=== PATIENT | male | born 1990 | race African-American/Black ===

== ENCOUNTER 2017-07-02 07:30 | Emergency (ER) | payer OTHER, SELFPAY ==
[~2017-07-02] VITALS: Ht 185.4 cm; Wt 98.0 kg
[2017-07-02] MEDS ORDERED: HYDROmorphone 1 MG/ML, 1ML IVPush PRN (08:00)
[2017-07-02] MEDS ORDERED: SODIUM CHLORIDE 0.9% 1,000ML IVBOLUS ONE (08:00)
[2017-07-02] MEDS ORDERED: ONDANSETRON 2MG/ML, 2ML IVPush ONE (08:00)
[2017-07-02] MEDS ORDERED: SODIUM CHLORIDE FLUSH 10ML SYR IVF ONE (08:00)
[2017-07-02] MEDS ORDERED: ONDANSETRON 2MG/ML, 2ML ONE (08:09)
[2017-07-02] MEDS ORDERED: HYDROmorphone 1 MG/ML, 1ML ONE (08:09)
[2017-07-02 08:19] LABS: HEMATOCRIT 48.1 % (39.2-51.8); HEMOGLOBIN 16.2 g/dL (13.7-18.0); WHITE BLOOD COUNT 15.9 x10^3/uL (3.4-10)
[2017-07-02 08:31] LABS: ASPARTATE AMINO TRANSFERASE 23 U/L (15-37); BLOOD UREA NITROGEN 13 mg/dL (7-18)
[2017-07-02] MEDS ORDERED: OMNIPAQUE 350 MG/ML, 100ML BOTTLE ONE (09:50)
[2017-07-02 11:12] VITALS: BP 128/59
== END 2017-07-02 11:55 | disposition home or self-care (01) ==
LOC: ED 08:26
DX: R10.12 Left upper quadrant pain (principal); R10.32 Left lower quadrant pain
CPT/HCPCS: 36415; 74177; 80053; 81001; 83690; 85025; 96361; 96374; 96375; 99285; J1170; J2405; J7030; Q9967

== ENCOUNTER 2017-11-22 14:28 | Emergency (ER) | payer SELFPAY ==
[~2017-11-22] VITALS: Ht 185.4 cm; Wt 92.0 kg
[2017-11-22] MEDS ORDERED: MORPHINE SULFATE 4 MG/ML, 1ML ONE (14:47)
[2017-11-22] MEDS ORDERED: FAMOTIDINE 20 MG/2 ML ONE (14:47)
[2017-11-22] MEDS ORDERED: ONDANSETRON 2MG/ML, 2ML ONE (14:47)
[2017-11-22] MEDS ORDERED: MORPHINE SULFATE 4 MG/ML, 1ML IVPush PRN (15:00)
[2017-11-22] MEDS ORDERED: ONDANSETRON 2MG/ML, 2ML IVPush ONE (15:00)
[2017-11-22] MEDS ORDERED: SODIUM CHLORIDE FLUSH 10ML SYR IVF ONE (15:00)
[2017-11-22] MEDS ORDERED: SODIUM CHLORIDE 0.9% 1,000ML IVBOLUS ONE ×2 (15:00→16:00)
[2017-11-22] MEDS ORDERED: FAMOTIDINE 20 MG/2 ML IVP ONE (15:00)
[2017-11-22] MEDS ORDERED: PLEASE ENTER HEIGHT AND WEIGHT MC SCH (15:00)
[2017-11-22 15:21] LABS: BASOPHILS % (AUTO) 0 % (0-1); EOSINOPHILS % (AUTO) 0 % (1-7); LYMPHOCYTES # (AUTO) 0.35 x10^3/uL (1-3.4); LYMPHOCYTES % (AUTO) 6 % (22-44); MD NO; MEAN CORPUSCULAR HEMOGLOBIN 30.1 pg (27.5-34.5); MEAN CORPUSCULAR VOLUME 88.6 fL (81-97); MEAN PLATELET VOLUME 8.6 fL (7.4-10.4); MONOCYTES # (AUTO) 0.68 x10^3/uL (0.2-0.8); MONOCYTES % (AUTO) 11 % (2-9); NEUTROPHILS # (AUTO) 4.96 x10^3/uL (1.8-6.8); NEUTROPHILS % (AUTO) 83 % (42-75); PLATELET COUNT 143 x10^3/uL (130-400); RED BLOOD COUNT 5.27 x10^6/uL (4.38-5.82); RED CELL DISTRIBUTION WIDTH 13.3 % (9.4-14.8)
[2017-11-22 15:25] LABS: MICROSCOPIC NOT IND
[2017-11-22 15:30] LABS: ALBUMIN 3.6 g/dL (3.4-5.0); ANION GAP 10 mmol/L (5-15); CALCIUM 8.5 mg/dL (8.5-10.1); CHLORIDE 102 mmol/L (98-107)
[2017-11-22 15:34] LABS: ALANINE AMINOTRANSFERASE 55 U/L (12-78); ALKALINE PHOSPHATASE 69 U/L (45-117); BILIRUBIN,TOTAL 0.4 mg/dL (0.2-1.0); CREATININE 1.12 mg/dL (0.7-1.3); CULTURE INDICATED? NO; TOTAL PROTEIN 7.1 g/dL (6.4-8.2)
[2017-11-22 15:38] VITALS: BP 135/66
== END 2017-11-22 16:09 | disposition home or self-care (01) ==
LOC: ED 15:45
DX: K25.3 Acute gastric ulcer without hemorrhage or perforation (principal); B96.81 Helicobacter pylori [H. pylori] as the cause of diseases classified elsewhere; E86.0 Dehydration; K52.9 Noninfective gastroenteritis and colitis, unspecified
CPT/HCPCS: 36415; 80053; 81003; 83690; 85025; 86677; 96361; 96374; 96375; 99284; J2405; J7030; S0028

== ENCOUNTER 2018-08-23 19:46 | Emergency (ER) | payer OTHER ==
[~2018-08-23] VITALS: Ht 188 cm; Wt 89.0 kg
[2018-08-23] MEDS ORDERED: DICYCLOMINE 20 MG TABLET ONE (20:25)
[2018-08-23] MEDS ORDERED: MAALOX/HYOSCYAMINE/LIDOCAINE 45 ML BTL ONE (20:25)
[2018-08-23] MEDS ORDERED: PROMETHAZINE 25 MG/ML, 1ML ONE (20:26)
[2018-08-23] MEDS ORDERED: PROMETHAZINE 25 MG/ML, 1ML IM ONE (20:30)
[2018-08-23] MEDS ORDERED: MAALOX/HYOSCYAMINE/LIDOCAINE 45 ML BTL PO ONE (20:30)
[2018-08-23] MEDS ORDERED: DICYCLOMINE 20 MG TABLET PO ONE (20:30)
[2018-08-23 20:42] LABS: BASOPHILS # (AUTO) 0.01 x10^3/uL (0-0.1); BASOPHILS % (AUTO) 0 % (0-1); EOSINOPHILS # (AUTO) 0.11 x10^3/uL (0-0.4); EOSINOPHILS % (AUTO) 1 % (1-7); LYMPHOCYTES # (AUTO) 1.14 x10^3/uL (1-3.4); LYMPHOCYTES % (AUTO) 7 % (22-44); MD NO; MEAN CORPUSCULAR HEMOGLOBIN 30.4 pg (27.5-34.5); MEAN CORPUSCULAR HGB CONC 33.8 g/dL (33.2-36.2); MEAN CORPUSCULAR VOLUME 90.1 fL (81-97); MEAN PLATELET VOLUME 8.5 fL (7.4-10.4); MONOCYTES # (AUTO) 0.71 x10^3/uL (0.2-0.8); MONOCYTES % (AUTO) 5 % (2-9); NEUTROPHILS # (AUTO) 13.75 x10^3/uL (1.8-6.8); NEUTROPHILS % (AUTO) 87 % (42-75); PLATELET COUNT 194 x10^3/uL (130-400); RED BLOOD COUNT 5.22 x10^6/uL (4.38-5.82); RED CELL DISTRIBUTION WIDTH 13.3 % (9.4-14.8)
[2018-08-23 20:53] LABS: ALANINE AMINOTRANSFERASE 54 U/L (12-78); ALBUMIN 4.2 g/dL (3.4-5.0); ANION GAP 10 mmol/L (5-15); CHLORIDE 110 mmol/L (98-107); CREATININE 1.16 mg/dL (0.7-1.3)
[2018-08-23 20:55] LABS: ALKALINE PHOSPHATASE 63 U/L (45-117); BILIRUBIN,TOTAL 0.5 mg/dL (0.2-1.0); TOTAL PROTEIN 7.5 g/dL (6.4-8.2)
[2018-08-23 21:21] VITALS: BP 123/57
== END 2018-08-23 22:26 | disposition home or self-care (01) ==
LOC: ED 22:25
DX: K92.2 Gastrointestinal hemorrhage, unspecified (principal); K92.0 Hematemesis
CPT/HCPCS: 36415; 80053; 83690; 85025; 96372; 99284; J2550

== ENCOUNTER 2018-08-31 20:32 | Emergency (ER) | payer MEDICAID, OTHER ==
[~2018-08-31] VITALS: Ht 188 cm; Wt 87.2 kg
[2018-08-31 20:33] VITALS: BP 98/62
[2018-08-31] MEDS ORDERED: SODIUM CHLORIDE FLUSH 10ML SYR IVF ONE (21:00)
[2018-08-31] MEDS ORDERED: DIPHENHYDRAMINE 50 MG/ML, 1ML IVPush ONE (21:00)
[2018-08-31] MEDS ORDERED: METOCLOPRAMIDE 5 MG/ML, 2ML IVPush ONE (21:00)
[2018-08-31] MEDS ORDERED: SODIUM CHLORIDE 0.9% 1,000ML IVBOLUS ONE (21:00)
[2018-08-31 21:20] LABS: BASOPHILS # (AUTO) 0.01 x10^3/uL (0-0.1); BASOPHILS % (AUTO) 0 % (0-1); EOSINOPHILS # (AUTO) 0.03 x10^3/uL (0-0.4); EOSINOPHILS % (AUTO) 0 % (1-7); LYMPHOCYTES # (AUTO) 1.02 x10^3/uL (1-3.4); LYMPHOCYTES % (AUTO) 8 % (22-44); MD NO; MEAN CORPUSCULAR HEMOGLOBIN 30.8 pg (27.5-34.5); MEAN CORPUSCULAR HGB CONC 33.8 g/dL (33.2-36.2); MEAN CORPUSCULAR VOLUME 91.1 fL (81-97); MEAN PLATELET VOLUME 8.6 fL (7.4-10.4); MONOCYTES # (AUTO) 0.53 x10^3/uL (0.2-0.8); MONOCYTES % (AUTO) 4 % (2-9); NEUTROPHILS # (AUTO) 11.68 x10^3/uL (1.8-6.8); NEUTROPHILS % (AUTO) 88 % (42-75); PLATELET COUNT 197 x10^3/uL (130-400); RED BLOOD COUNT 5.17 x10^6/uL (4.38-5.82); RED CELL DISTRIBUTION WIDTH 13.5 % (9.4-14.8)
[2018-08-31 21:29] LABS: ALBUMIN 4.3 g/dL (3.4-5.0); ANION GAP 12 mmol/L (5-15); CALCIUM 9.2 mg/dL (8.5-10.1); CHLORIDE 108 mmol/L (98-107)
[2018-08-31 21:33] LABS: ALANINE AMINOTRANSFERASE 46 U/L (12-78); ALKALINE PHOSPHATASE 62 U/L (45-117); BILIRUBIN,TOTAL 0.8 mg/dL (0.2-1.0); CREATININE 0.99 mg/dL (0.7-1.3); TOTAL PROTEIN 7.4 g/dL (6.4-8.2)
[2018-08-31] MEDS ORDERED: METOCLOPRAMIDE 5 MG/ML, 2ML ONE (21:57)
[2018-08-31] MEDS ORDERED: DIPHENHYDRAMINE 50 MG/ML, 1ML ONE (21:57)
== END 2018-08-31 23:03 | disposition home or self-care (01) ==
LOC: ED 21:37
DX: E86.0 Dehydration (principal); R10.13 Epigastric pain; R11.2 Nausea with vomiting, unspecified
CPT/HCPCS: 36415; 71045; 80053; 83690; 85025; 93005; 96361; 96374; 96375; 99285; J1200; J2765; J7030

== ENCOUNTER 2019-06-04 05:56 | Emergency (ER) | payer MEDICAID ==
[~2019-06-04] VITALS: Ht 185.4 cm; Wt 99.4 kg
[2019-06-04] MEDS ORDERED: ONDANSETRON 2MG/ML, 2ML ONE (06:25)
[2019-06-04] MEDS ORDERED: HYDROmorphone 2 MG/ML, 1ML ONE ×2 (06:26→07:45)
[2019-06-04] MEDS ORDERED: SODIUM CHLORIDE FLUSH 10ML SYR IVF ONE (06:30)
[2019-06-04] MEDS ORDERED: ONDANSETRON 2MG/ML, 2ML IVPush ONE (06:30)
[2019-06-04] MEDS: HYDROmorphone 2 MG/ML, 1ML IVPush PRN ×2 (06:33→07:50)
--- NOTE | 2019-06-04 06:40 | NUR ---
Pt presents to ed c/o dull pain R side of abd and R flank/backx3 days. States increasing, sharp, pain starting this am w/ bearing down for bm. Denies further gi/gu s/s. States hx 2 dx of h. pylori, most recent nov. Denies vomiting/blood in emesis. IV initiated and medications admin. Pt to ct at this time.
[2019-06-04 06:46] LABS: BASOPHILS # (AUTO) 0.01 x10^3/uL (0-0.1); BASOPHILS % (AUTO) 0 % (0-1); EOSINOPHILS % (AUTO) 4 % (1-7); LYMPHOCYTES # (AUTO) 1.51 x10^3/uL (1-3.4); LYMPHOCYTES % (AUTO) 32 % (22-44); MD NO; MEAN CORPUSCULAR HEMOGLOBIN 30.6 pg (27.5-34.5); MEAN CORPUSCULAR HGB CONC 33.2 g/dL (33.2-36.2); MEAN CORPUSCULAR VOLUME 92.2 fL (81-97); MEAN PLATELET VOLUME 8.6 fL (7.4-10.4); MONOCYTES # (AUTO) 0.45 x10^3/uL (0.2-0.8); MONOCYTES % (AUTO) 10 % (2-9); NEUTROPHILS # (AUTO) 2.57 x10^3/uL (1.8-6.8); NEUTROPHILS % (AUTO) 54 % (42-75); PLATELET COUNT 181 x10^3/uL (130-400); RED BLOOD COUNT 5.08 x10^6/uL (4.38-5.82); RED CELL DISTRIBUTION WIDTH 13.7 % (9.4-14.8)
[2019-06-04 06:56] LABS: ALBUMIN 3.7 g/dL (3.4-5.0); ANION GAP 3 mmol/L (5-15); CALCIUM 8.5 mg/dL (8.5-10.1); CHLORIDE 111 mmol/L (98-107)
[2019-06-04 06:59] LABS: ALANINE AMINOTRANSFERASE 51 U/L (12-78); ALKALINE PHOSPHATASE 61 U/L (45-117); BILIRUBIN,TOTAL 0.3 mg/dL (0.2-1.0); CREATININE 1.02 mg/dL (0.7-1.3); TOTAL PROTEIN 6.6 g/dL (6.4-8.2)
--- NOTE | 2019-06-04 07:03 | NUR ---
REPORT FROM ANDER NEWBY. PATIENT REPORTS PAIN IMPROVED BUT STILL QUITE UNCOMFORTABLE AT 5/10 VITALS UPDATED-WNL (MILDLY BRADYCARDIC-YOUNG ATHLETIC MALE) UPDATED ON ESTIMATED POC (AWAITING COMPLETE TESTING RESULTS)
[2019-06-04 07:12] LABS: MICROSCOPIC INDICATED
[2019-06-04 07:28] LABS: CULTURE INDICATED? NO
[2019-06-04 08:04] VITALS: BP 111/64
== END 2019-06-04 08:06 | disposition home or self-care (01) ==
LOC: ED 07:17
DX: S39.012A Strain of muscle, fascia and tendon of lower back, initial encounter (principal); F17.210 Nicotine dependence, cigarettes, uncomplicated; X58.XXXA Exposure to other specified factors, initial encounter; Y93.89 Activity, other specified; Y92.89 Other specified places as the place of occurrence of the external cause; Y99.8 Other external cause status
CPT/HCPCS: 36415; 74176; 80053; 81001; 83690; 85025; 96374; 96375; 96376; 99284; J1170; J2405

== ENCOUNTER 2019-09-24 12:14 | Emergency (ER) | payer MEDICAID, OTHER ==
[~2019-09-24] VITALS: Ht 185.4 cm; Wt 100.2 kg
[2019-09-24] MEDS ORDERED: FAMOTIDINE 20 MG TABLET PO ONE (13:00)
[2019-09-24] MEDS ORDERED: ONDANSETRON ODT 4 MG PO ONE (13:00)
--- NOTE | 2019-09-24 14:12 | NUR ---
STAVE HEWER: PT TO ROOM FROM [id number]
[2019-09-24] MEDS ORDERED: ONDANSETRON ODT 4 MG ONE (14:25)
[2019-09-24] MEDS ORDERED: FAMOTIDINE 20 MG TABLET ONE (14:25)
--- NOTE | 2019-09-24 14:31 | NUR ---
PT HAS HAD CO OF N/V SINCE 430 THIS AM. 10X EMESIS. PT UNABLE TO KEEP FLUIDS OR FOODS DOWN SINCE YESTERDAY. NOT IN DISTRESS AT THIS TIME. PA AT BEDSIDE.
[2019-09-24 14:38] LABS: BASOPHILS # (AUTO) 0.01 x10^3/uL (0-0.1); BASOPHILS % (AUTO) 0 % (0-1); EOSINOPHILS # (AUTO) 0.02 x10^3/uL (0-0.4); EOSINOPHILS % (AUTO) 0 % (1-7); LYMPHOCYTES # (AUTO) 0.81 x10^3/uL (1-3.4); LYMPHOCYTES % (AUTO) 5 % (22-44); MD NO; MEAN CORPUSCULAR HEMOGLOBIN 30.2 pg (27.5-34.5); MEAN CORPUSCULAR HGB CONC 33.2 g/dL (33.2-36.2); MEAN PLATELET VOLUME 8.8 fL (7.4-10.4); MONOCYTES # (AUTO) 0.67 x10^3/uL (0.2-0.8); MONOCYTES % (AUTO) 4 % (2-9); NEUTROPHILS # (AUTO) 14.33 x10^3/uL (1.8-6.8); NEUTROPHILS % (AUTO) 91 % (42-75); PLATELET COUNT 193 x10^3/uL (130-400); RED BLOOD COUNT 5.72 x10^6/uL (4.38-5.82); RED CELL DISTRIBUTION WIDTH 13.3 % (9.4-14.8)
--- NOTE | 2019-09-24 14:38 | NUR ---
SULLY RN: JANES DAVIES HAS SEEN PATIENT. CALL LIGHT IN PLACE. WILL MONITOR WHILE PRIMARY RN IS ON BREAK.
[2019-09-24 14:39] LABS: ALANINE AMINOTRANSFERASE 73 U/L (12-78); ANION GAP 6 mmol/L (5-15); CALCIUM 9.7 mg/dL (8.5-10.1); CHLORIDE 107 mmol/L (98-107); CREATININE 1.14 mg/dL (0.7-1.3)
[2019-09-24 14:42] LABS: ALKALINE PHOSPHATASE 72 U/L (45-117); BILIRUBIN,TOTAL 0.8 mg/dL (0.2-1.0); TOTAL PROTEIN 8.3 g/dL (6.4-8.2)
[2019-09-24] MEDS ORDERED: DICYCLOMINE 10 MG CAPSULE PO ONE (15:00)
--- NOTE | 2019-09-24 15:02 | NUR ---
SULLY RN: FLORENCIO FENG AT THIS TIME PER JANES DAVIES.
--- NOTE | 2019-09-24 15:14 | NUR ---
Report given to KEYONNA Swenson
[2019-09-24] MEDS ORDERED: DICYCLOMINE 20 MG TABLET ONE (15:51)
[2019-09-24] MEDS ORDERED: DICYCLOMINE 20 MG TABLET PO ONE (16:00)
--- NOTE | 2019-09-24 16:16 | NUR ---
MEDICATED PER ORDERS. ENCOURAGED PT TO VOID. PT DENYING NEED TO VOID
--- NOTE | 2019-09-24 16:33 | NUR ---
REMINDED PT FOR UA, STILL NOT NEEDING TO VOID. STATES STILL HAS DISCOMFORT IN ABDOMEN
[2019-09-24 17:45] LABS: CULTURE INDICATED? NO; MICROSCOPIC INDICATED
[2019-09-24] MEDS ORDERED: HYDROcodone/APAP 5/325 TABLET ONE (17:56)
[2019-09-24 17:59] VITALS: BP 118/72
[2019-09-24] MEDS ORDERED: HYDROcodone/APAP 5/325 TABLET PO ONE (18:00)
--- NOTE | 2019-09-24 18:09 | NUR ---
PT CO OF ABDOMINAL PAIN. PT MEDICATED W NORCO. WILL REASSES. VS STABLE AT THIS TIME
--- NOTE | 2019-09-24 18:21 | NUR ---
Patient/Caregiver given discharge instructions and they have confirmed that they understand the instructions. Patient ambulatory with steady gait.
== END 2019-09-24 18:30 | disposition home or self-care (01) ==
LOC: ED 18:05
DX: R11.2 Nausea with vomiting, unspecified (principal); R10.30 Lower abdominal pain, unspecified
CPT/HCPCS: 36415; 74021; 76857; 80053; 81001; 83690; 85025; 99284; Q0162

== ENCOUNTER 2020-03-25 03:46 | Emergency (ER) | payer MEDICAID ==
[~2020-03-25] VITALS: Ht 188 cm; Wt 95.0 kg
[2020-03-25] MEDS ORDERED: KETOROLAC 30 MG/1 ML ONE (04:26)
[2020-03-25] MEDS ORDERED: HALOPERIDOL 5 MG/ML ONE (04:26)
[2020-03-25] MEDS ORDERED: HALOPERIDOL 5 MG/ML IV ONE (04:30)
[2020-03-25] MEDS ORDERED: SODIUM CHLORIDE FLUSH 10ML SYR IVF ONE (04:30)
[2020-03-25] MEDS ORDERED: KETOROLAC 30 MG/1 ML IVPush ONE (04:30)
[2020-03-25] MEDS ORDERED: SODIUM CHLORIDE 0.9% 1,000ML IVBOLUS ONE (04:30)
[2020-03-25 04:56] LABS: BASOPHILS # (AUTO) 0.02 x10^3/uL (0-0.1); BASOPHILS % (AUTO) 0 % (0-1); EOSINOPHILS # (AUTO) 0.13 x10^3/uL (0-0.4); EOSINOPHILS % (AUTO) 2 % (1-7); LYMPHOCYTES % (AUTO) 32 % (22-44); MD NO; MEAN CORPUSCULAR HEMOGLOBIN 30.2 pg (27.5-34.5); MEAN CORPUSCULAR HGB CONC 33.4 g/dL (33.2-36.2); MEAN CORPUSCULAR VOLUME 90.4 fL (81-97); MEAN PLATELET VOLUME 8.2 fL (7.4-10.4); MONOCYTES # (AUTO) 0.56 x10^3/uL (0.2-0.8); MONOCYTES % (AUTO) 8 % (2-9); NEUTROPHILS # (AUTO) 4.17 x10^3/uL (1.8-6.8); NEUTROPHILS % (AUTO) 58 % (42-75); PLATELET COUNT 201 x10^3/uL (130-400); RED BLOOD COUNT 5.29 x10^6/uL (4.38-5.82); RED CELL DISTRIBUTION WIDTH 13.3 % (9.4-14.8)
--- NOTE | 2020-03-25 04:59 | NUR ---
Patient presents to ER c/o right head, neck, and shoulder pain. Patient is anxious and writhing in pain, yelling. Patient unable to control his breathing. Advised patient to take slow, deep breaths. IV established. Medicated patient per jan.
[2020-03-25 05:07] LABS: ALANINE AMINOTRANSFERASE 36 U/L (12-78); ALBUMIN 4.5 g/dL (3.4-5.0); ANION GAP 11 mmol/L (5-15); CALCIUM 9.3 mg/dL (8.5-10.1); CHLORIDE 103 mmol/L (98-107); CREATININE 1.47 mg/dL (0.7-1.3)
[2020-03-25 05:09] LABS: ALKALINE PHOSPHATASE 72 U/L (45-117); BILIRUBIN,TOTAL 0.9 mg/dL (0.2-1.0); TOTAL PROTEIN 7.9 g/dL (6.4-8.2)
[2020-03-25] MEDS ORDERED: NS + 40MEQ KCL 1,000 ML IV ONE ×2 (05:41→06:07)
[2020-03-25] MEDS ORDERED: POTASSIUM CHLORIDE 20 MEQ TAB.ER.PRT ONE (05:48)
[2020-03-25] MEDS ORDERED: POTASSIUM CHLORIDE 20 MEQ TAB.ER.PRT PO ONE (06:00)
--- NOTE | 2020-03-25 06:28 | NUR ---
IV K ordered. Advised patient the infusion will take four hours. Patient understood. Meds admin per jan.
--- NOTE | 2020-03-25 06:39 | NUR ---
[facility] [phone]
--- NOTE | 2020-03-25 06:51 | NUR ---
Report given to KEYONNA Norton.
--- NOTE | 2020-03-25 08:53 | NUR ---
Discussed discharge paperwork with pt. All questions answered. Reiterated to pt that he was not to leave until his infusion had completed and he was disconnected by an RN. pt verablized understanding. pt currently resting with no complaints.
[2020-03-25 09:20] VITALS: BP 119/60
--- NOTE | 2020-03-25 09:23 | NUR ---
Patient given discharge instructions and they have confirmed that they understand the instructions. Patient ambulatory with steady gait. Left ED in no distress.
== END 2020-03-25 09:26 | disposition home or self-care (01) ==
LOC: ED 04:15
DX: G89.29 Other chronic pain (principal); R10.9 Unspecified abdominal pain; E87.6 Hypokalemia; F43.0 Acute stress reaction; R11.10 Vomiting, unspecified; R06.02 Shortness of breath; R00.0 Tachycardia, unspecified
CPT/HCPCS: 36415; 80053; 83690; 85025; 93005; 96365; 96366; 96375; 99285; J1630; J1885; J3480; J7030

== ENCOUNTER 2020-06-12 20:27 | Emergency (ER) | payer MEDICAID ==
[~2020-06-12] VITALS: Ht 188 cm; Wt 92.6 kg
[2020-06-12 20:31] VITALS: BP 140/76
--- NOTE | 2020-06-12 21:13 | NUR ---
patient reports "sharp, static pain" from his left side of his head to his shoulders and spine, he reports it happens about every 45minutes and last about 30-45 seconds, he denies any trauma to the area, he is AOX4, good arm and leg strengh. denies any fevers, or neck stiffness
[2020-06-12] MEDS ORDERED: PROCHLORPERAZINE 5 MG/ML, 2ML ONE (21:37)
[2020-06-12] MEDS ORDERED: KETOROLAC 30 MG/1 ML ONE (21:37)
[2020-06-12] MEDS ORDERED: DIPHENHYDRAMINE 50 MG/ML, 1ML ONE (21:51)
[2020-06-12 21:59] LABS: BASOPHILS # (AUTO) 0.02 x10^3/uL (0-0.1); BASOPHILS % (AUTO) 0 % (0-1); EOSINOPHILS # (AUTO) 0.14 x10^3/uL (0-0.4); EOSINOPHILS % (AUTO) 2 % (1-7); LYMPHOCYTES % (AUTO) 32 % (22-44); MD NO; MEAN CORPUSCULAR HEMOGLOBIN 30.3 pg (27.5-34.5); MEAN CORPUSCULAR HGB CONC 33.5 g/dL (33.2-36.2); MEAN CORPUSCULAR VOLUME 90.4 fL (81-97); MEAN PLATELET VOLUME 8.8 fL (7.4-10.4); MONOCYTES # (AUTO) 0.57 x10^3/uL (0.2-0.8); MONOCYTES % (AUTO) 10 % (2-9); NEUTROPHILS # (AUTO) 3.35 x10^3/uL (1.8-6.8); NEUTROPHILS % (AUTO) 56 % (42-75); PLATELET COUNT 174 x10^3/uL (130-400); RED BLOOD COUNT 4.79 x10^6/uL (4.38-5.82); RED CELL DISTRIBUTION WIDTH 14.4 % (9.4-14.8)
[2020-06-12] MEDS ORDERED: KETOROLAC 30 MG/1 ML IVPush ONE (22:00)
[2020-06-12] MEDS ORDERED: PROCHLORPERAZINE 5 MG/ML, 2ML IVPush ONE (22:00)
[2020-06-12] MEDS ORDERED: DIPHENHYDRAMINE 50 MG/ML, 1ML IVPush ONE (22:00)
[2020-06-12 22:07] LABS: ALBUMIN 3.1 g/dL (3.4-5.0); ANION GAP 6 mmol/L (5-15); CALCIUM 8.3 mg/dL (8.5-10.1); CHLORIDE 112 mmol/L (98-107); CREATININE 1.04 mg/dL (0.7-1.3)
--- NOTE | 2020-06-12 22:40 | NUR ---
PATIENT REPORTS NECK PAIN HAS IMPROVED, RESTING COMFORTABLY IN ROOM,
--- NOTE | 2020-06-12 23:00 | NUR ---
RN GAVE PATIENT DISCHARGE PAPERWORK WITH PRESCRIPTIONS, PATIENT VERBALIZED UNDERSTANDING, PATIENT STEADILY AMBULATED OUT OF ER
== END 2020-06-12 23:03 | disposition home or self-care (01) ==
LOC: ED 20:45
DX: G44.219 Episodic tension-type headache, not intractable (principal); M54.6 Pain in thoracic spine; M54.2 Cervicalgia; M62.830 Muscle spasm of back; M19.90 Unspecified osteoarthritis, unspecified site; Z87.11 Personal history of peptic ulcer disease
CPT/HCPCS: 36415; 80048; 82040; 85025; 96374; 96375; 99284; J0780; J1200; J1885

== ENCOUNTER 2020-06-13 17:02 | Emergency (ER) | payer MEDICAID ==
[~2020-06-13] VITALS: Ht 188 cm; Wt 89.4 kg
[2020-06-13 17:04] VITALS: BP 118/70
[2020-06-13] MEDS ORDERED: LORazepam 1MG TABLET ONE (17:50)
[2020-06-13] MEDS ORDERED: LORazepam 1MG TABLET PO ONE (18:00)
== END 2020-06-13 19:10 | disposition home or self-care (01) ==
LOC: ED 18:00
DX: R55 Syncope and collapse (principal); G43.C0 Periodic headache syndromes in child or adult, not intractable; R53.1 Weakness; R94.31 Abnormal electrocardiogram [ECG] [EKG]; Z87.11 Personal history of peptic ulcer disease
CPT/HCPCS: 70450; 71045; 93005; 99284; 99285

== ENCOUNTER 2020-12-23 08:23 | Emergency (ER) | payer MEDICAID ==
[~2020-12-23] VITALS: Ht 188 cm; Wt 91.0 kg
[2020-12-23] MEDS ORDERED: SODIUM CHLORIDE 0.9% 1,000ML IVBOLUS ONE (08:30)
[2020-12-23] MEDS: PLEASE ENTER ALLERGIES MC SCH ×2 (08:30→10:00)
[2020-12-23] MEDS ORDERED: MELO7.5T31 PO (08:32)
--- NOTE | 2020-12-23 08:32 | NUR ---
pt is a 28m bib ems complaining of n/v/d and abd pain since 0430 this morning. abd pain is on the left side. patient is diaphoretic upon arrival. He recvd 200ns in route and 4mg of zofran. he has a 20g in the right ac. provider at bedside for eval and plan of care. cycling vitals and continuous sp02. call light within reach.
[2020-12-23] MEDS ORDERED: METOCLOPRAMIDE 5 MG/ML, 2ML ONE (08:48)
[2020-12-23] MEDS ORDERED: FAMOTIDINE 20 MG/2 ML ONE (08:48)
--- NOTE | 2020-12-23 08:57 | NUR ---
pt placed on associate manager, medicated per emar, warm blankets provided. pt no longer vomiting and is resting comfortably in bed. friend at bedside. call light within reach.
[2020-12-23 08:58] LABS: BASOPHILS % (AUTO) 0 % (0-1); EOSINOPHILS % (AUTO) 1 % (1-7); LYMPHOCYTES % (AUTO) 11 % (22-44); MEAN CORPUSCULAR HEMOGLOBIN 29.9 pg (27.5-34.5); MEAN CORPUSCULAR HGB CONC 33.4 g/dL (33.2-36.2); MEAN PLATELET VOLUME 8.6 fL (7.4-10.4); MONOCYTES % (AUTO) 5 % (2-9); NEUTROPHILS % (AUTO) 84 % (42-75); PLATELET COUNT 186 x10^3/uL (130-400); RED BLOOD COUNT 5.46 x10^6/uL (4.38-5.82); RED CELL DISTRIBUTION WIDTH 13.5 % (9.4-14.8)
[2020-12-23] MEDS ORDERED: FAMOTIDINE 20 MG/2 ML IVPush ONE (09:00)
[2020-12-23] MEDS ORDERED: METOCLOPRAMIDE 5 MG/ML, 2ML IVPush ONE (09:00)
[2020-12-23 09:04] LABS: MD NO
[2020-12-23 09:08] LABS: ALANINE AMINOTRANSFERASE 68 U/L (12-78); ALBUMIN 4.5 g/dL (3.4-5.0); ANION GAP 6 mmol/L (5-15); CALCIUM 9.3 mg/dL (8.5-10.1); CHLORIDE 113 mmol/L (98-107); CREATININE 1.14 mg/dL (0.7-1.3)
[2020-12-23 09:13] LABS: ALKALINE PHOSPHATASE 74 U/L (45-117); BILIRUBIN,TOTAL 0.6 mg/dL (0.2-1.0); TOTAL PROTEIN 7.6 g/dL (6.4-8.2); TROPONIN I < 0.015 ng/mL (0.000-0.045)
--- NOTE | 2020-12-23 09:29 | NUR ---
provided pt with urinal to try for urine specimen.
[2020-12-23 09:59] LABS: MICROSCOPIC INDICATED
[2020-12-23] MEDS ORDERED: HALOPERIDOL 5 MG/ML IV ONE (10:00)
--- NOTE | 2020-12-23 10:14 | NUR ---
pt complaining of abdominal pain, lower left quadrant, 7/10, medicated per emar. friend at bedside, call light within reach.
[2020-12-23] MEDS ORDERED: OMNIPAQUE 350 MG/ML, 100ML BOTTLE ONE (10:34)
--- NOTE | 2020-12-23 10:43 | NUR ---
PT BACK FROM CT, STATES THE HALDOL HELPED HIS PAIN, DOWN TO A 5/10. FRIEND AT BEDSIDE AND CALL LIGHT WITHIN REACH.
[2020-12-23 11:10] VITALS: BP 152/83
--- NOTE | 2020-12-23 11:12 | NUR ---
Patient/Caregiver given discharge instructions and they have confirmed that they understand the instructions. Patient ambulatory with steady gait.
== END 2020-12-23 11:14 | disposition home or self-care (01) ==
LOC: MERGE 08:23 → ED 10:30
DX: K52.29 Other allergic and dietetic gastroenteritis and colitis (principal); R11.2 Nausea with vomiting, unspecified; I21.9 Acute myocardial infarction, unspecified; I49.1 Atrial premature depolarization
CPT/HCPCS: 36415; 74177; 80053; 81001; 83690; 84484; 85025; 93005; 96361; 96374; 96375; 99285; J1630; J2765; J7030; Q9967